=== PATIENT | male | born 1995 | race Caucasian/White ===

== ENCOUNTER → 2024-12-14 10:51 | Outpatient (CLI) | payer OTHER, SELFPAY ==
[2024-12-14 18:59] LABS: Add Manual Diff / Slide Review NO; Basophils Absolute Auto 0 /uL (0-100); Basophils Percent Auto 0.3 % (0-2); Eosinophils Absolute Auto 200 /uL (0-450); Eosinophils Percent Auto 2.9 % (2-4); Hematocrit 43.8 % (41-53); Hemoglobin 14.7 g/dL (13.5-17.5); Lymphocytes Absolute Auto 2300 /uL (1100-4500); Lymphocytes Percent Auto 35.7 % (25-40); Mean Corpuscular HGB Conc 33.6 % (30-36); Mean Corpuscular Hemoglobin 28.1 PG (26-34); Mean Corpuscular Volume 83.9 fL (80-100); Monocytes Absolute Auto 400 /uL (0-900); Monocytes Percent Auto 6.1 % (3-14); Neutrophils Absolute Auto 3500 /uL (1500-7000); Platelet Count 294 X10^3/uL (150-400); Red Blood Cell Count 5.22 X10^6/uL (4.5-5.9); Red Cell Distribution Width 13.4 % (11.6-14.8); White Blood Cell Count 6.4 X10^3/uL (4.5-11.0)
[2024-12-14 19:21] LABS: Alanine Aminotransferase 51 IU/L (<50); Albumin 4.3 g/dL (3.5-5.0); Albumin Globulin Ratio 1.8 (1.0-2.8); Alkaline Phosphatase 51 U/L (38-126); Aspartate Aminotransferase 36 IU/L (17-59); BUN Creatinine Ratio 20.7 (6-22); Bilirubin Total 0.5 mg/dL (0.2-1.3); Blood Urea Nitrogen 18 mg/dL (9-20); Calcium 8.9 mg/dL (8.4-10.2); Carbon Dioxide 25 mmol/L (22-32); Chloride 103 mmol/L (98-107); Cholesterol 191 mg/dL (140-199); Estimated Glomerular Filt Rate > 60 mL/min (>60); Globulin 2.4 g/dL (1.7-4.1); Glucose 89 mg/dL (70-100); HDL Cholesterol 26 mg/dL (40-60); HEMOLYSIS 16 (0-50); LDL Cholesterol Calculated 140 mg/dL (<100); Potassium 4.2 mmol/L (3.4-5.1); Sodium 138 mmol/L (137-145); Total Protein 6.7 g/dL (6.3-8.2); Triglycerides 125 mg/dL (35-150)
[2024-12-14 19:51] LABS: TSH w/ Reflex to FT4 1.25 uIU/mL (0.47-4.68)
[2024-12-14 20:12] LABS: HIV 1 & 2 Ab/Ag 4th Gen Combo NEGATIVE (NEGATIVE); Hep C Virus Ab w/Reflex Quant NEGATIVE s/c (NEGATIVE)
== END ==
PROVIDERS: PCP Physician Assistant; Visit Provider Physician Assistant
DX: Z13.6 Encounter for screening for cardiovascular disorders (principal); Z13.1 Encounter for screening for diabetes mellitus; F32.A Depression, unspecified; Z79.899 Other long term (current) drug therapy; R03.0 Elevated blood-pressure reading, without diagnosis of hypertension; Z11.59 Encounter for screening for other viral diseases; Z11.4 Encounter for screening for human immunodeficiency virus [HIV]
CPT/HCPCS: 80053; 80061; 84443; 85025; 86803; 87389

== ENCOUNTER → 2025-05-21 13:15 | Outpatient (CLI) | payer OTHER, SELFPAY ==
--- NOTE | 2025-05-21 13:16 | DI.RAD.S_ITS ---
PROCEDURE: XR LUMBAR SPINE MIN 4V INDICATIONS: lumbar pain TECHNIQUE: 5 views of the lumbar spine were acquired, including bilateral oblique views. COMPARISON: None. FINDINGS: Bones: 5 nonrib-bearing vertebrae are present. There is normal bony alignment. No vertebral body compression fractures. No suspicious bony lesions. Soft tissues: Overlying bowel gas pattern is normal. No suspicious soft tissue calcifications. Oblique images: No pars defects. IMPRESSION: No acute bony abnormality. Dictated by: August Leiva M.D. on 05/24/2025 at 10:36 Approved by: August Leiva M.D. on 05/24/2025 at 10:36
== END ==
PROVIDERS: PCP Physician Assistant; Referring Provider Physician Assistant; Visit Provider Physician Assistant
DX: M54.50 Low back pain, unspecified (principal)
CPT/HCPCS: 72110

== ENCOUNTER → 2025-06-29 16:29 | Outpatient (CLI) | payer OTHER, SELFPAY ==
--- NOTE | 2025-07-16 12:14 | DIET.OUTPTC ---
Dietary Outpatient Consult Consult Date:06/29/25 via telehealth Assessment:?30 y M referred to dietitian for hypercholesterolemia and obesity Pt has been doing more chicken over red meats, 1-2 more x/wk and has been trying to focus on leaner ground beef/cuts when available at store. Would still like to set up pre-prepped breakfast and do walks, but has been busy/difficultly with sleeping. Questions regarding getting different nutrients from foods. GI symptoms: reports tested as gluten intolerant but eats gluten and has no symptoms, daily BM normal, denies D/C/V/N Diet Recall: B-cristian bar or toast L-stews/leftovers or sandwiches D-Stews energy drinks 100-200 mg caffeine daily 1/2 gal to 2 gal water Use oil when cooking Ht:??6 ft Wt:?322 lb? BMI:?43? Activity: heavy equip operating at work Pertinent Labs: LDL 140, TC 191, TG 125, HDL 26 Nutrition Diagnosis:? (improving) Altered nutrition related lab value r/t intake of medium to high saturated fat meats, large portions aeb diet recall, reporting larger portion sizes Interventions:? Discussed and provided appropriate resources on the following: -Balanced meals and snacks in line with myplate, Mediterranean style of eating -Barriers to goals and NM -Varying vitamins/minerals/and nutrients in different fruits/veg/grains/nuts/legumes - provided anti-inflammatory handout which includes nutrient benefits of different foods and provided [facility] data base via email -Fiber, amounts, types -Fat, types, amounts -Physical activity Goals: -Continue- Smaller bowl for stew, wait 20 minutes after eating to assess hunger level on hunger fullness scale, more as needed -Breakfast daily by setting aside a weekend day for prep- planning to do wraps with eggs and veggies and ww tortillas - add a healthy fat like avocado serving/nuts/seeds on side -Getting sleep schedule back on track to walk the loop outside 2x/wk moderate pace -Continuing to choose leaner red meat cuts, increasing beans and chicken use EER:? 35-38 g fiber daily, 15 g or less SFA per day (2000-1700x7%/9) Monitoring/Evaluations:? F/u in 6wk Electronically Signed by: Elzbieta Jenkins [facility] [id number]
== END ==
PROVIDERS: PCP Physician Assistant; Referring Provider Physician Assistant
DX: E78.00 Pure hypercholesterolemia, unspecified (principal); E66.9 Obesity, unspecified; Z71.3 Dietary counseling and surveillance; Z68.41 Body mass index [BMI] 40.0-44.9, adult
CPT/HCPCS: 97803